=== PATIENT | female | born 1995 | race Caucasian/White ===

== ENCOUNTER 2017-09-04 16:42 | Emergency (ER) | payer BC, OTHER ==
[2017-09-04 17:35] LABS: #Lymphocytes 2.6 thou/uL (1.20-3.40); #Monocytes 0.7 thou/uL (0.11-0.59); #Neutrophils 6.9 thou/uL (1.40-6.50); %Basophils 0.4 % (0.0-1.0); %Eosinophils 0.4 % (0.0-10.0); %Lymphocytes 25.6 % (21.0-51.0); %Monocytes 6.8 % (0.0-10.0); Hematocrit 39.2 % (36.0-47.0); Mean Platelet Volume 7.3 fL (7.4-10.4); Red Blood Cell (RBC) Count 4.63 mill/uL (4.20-5.40); White Blood Cell (WBC) Count 10.3 thou/uL (4.8-10.8)
[2017-09-04 17:49] LABS: ALT (SGPT) 22 U/L (8-55); AST (SGOT) 19 U/L (5-34); Alkaline Phosphatase 85 U/L (40-150); Anion Gap 14 mmol/L (10-20); BUN (Urea Nitrogen) 13 mg/dL (7.0-18.7); Bilirubin, Total 0.3 mg/dL (0.2-1.2); Calc. Creatinine Clearance 0 mL/min (70-130); Calcium 9.7 mg/dL (7.8-10.44); Carbon Dioxide 25 mmol/L (22-29); Chloride 105 mmol/L (98-107); Estimated GFR-MDRD Greater than 90; Globulin 3.4 g/dL (2.4-3.5); Lipase 16 U/L (8-78); Protein, Total 7.7 g/dL (6.0-8.3)
[2017-09-04 18:16] LABS: Bilirubin Negative (Negative); Blood, Urine Negative (Negative); Glucose, Urine (Dipstick) Negative (Negative); Ketone, Urine Negative (Negative); Nitrite Negative (Negative); Protein, Urine (Dipstick) Negative (Neg-Trace); Urobilinogen 0.2 mg/dL (0.2-1.0)
--- NOTE | 2017-09-04 20:18 | CT ---
EXAM: ABDOMEN CT WITH CONTRAST PELVIC CT WITH CONTRAST 09/04/17 HISTORY: Abdominal pain, onset two days. Right lower quadrant pain. Nausea and vomiting and fever. COMPARISON: None. TECHNIQUE: Abdomen and pelvic CT performed with IV contrast . Enteric contrast was also administered. Coronal r eformatted images are submitted for interpretation. FINDINGS: ABDOMEN CT: Lung bases are clear. Normal heart size. The descending thoracic aorta and abdominal aorta have norm al caliber. No periaortic fat stranding. Symmetric attenuation of the psoas muscles. Gallbladder is surgically absent. Intra and extrahepatic portal vein is patent. Liver, spleen, pancreas and adrenal glands have symmetric enhancement. No gastrohepatic, retrocrural or periportal lymphadenopathy. No mesenteric mass, lymphadenopathy, free air or free fluid. Symmetric enhancement of the kidneys. Bilaterally, No obstructive uropathy. Gastric mucosa and duodenum are unremarkable. Multiple normal caliber small bowel loops are noted. I leocecal junction is normal. Contrast opacified normal appearing colon. There is some fecal material . No evidence of colonic obstruction. Appendix is not appreciated. Nevertheless, no significant inflammation of the cecal apex. Minimal fa t stranding at the tip of the cecal apex is noted which is nonspecific. Mucosa at this level is unre markable. PELVIC CT: Intrauterine device is identified. The uterus and left adnexa are unremarkable. There is appropriate enhancing essentially hypodense lesion in the right ovary measuring 1.3 x 1.7 cm. There is slight a symmetric enhancement of the right adnexal structures. The possibility of a complex cyst is raised. No pelvic mass, lymphadenopathy, free air or free fluid. Urinary bladder is unremarkable. There are no lytic or blastic changes of the osseous structures. IMPRESSION: 1. Nonvisualization of the appendix. Nevertheless, no significant inflammatory change at the ce tonya apex. Minimal adjacent fat stranding is nonspecific. 2. No evidence of bowel obstruction. 3. Hypodense lesion with peripheral enhancement in the right adnexa likely representing a right ovarian cyst. Followup ultrasound in 8 to 10 weeks is recommended to ensure resolution. POS: [facility]
[2017-09-04] MEDS ORDERED: Ketorolac Tromethamine 30 MG/ML VIAL ONE (20:19)
== END 2017-09-04 20:37 | disposition home or self-care (01) ==
LOC: SCSER 16:42
DX: N83.201 Unspecified ovarian cyst, right side (principal); F41.9 Anxiety disorder, unspecified; F32.9 Major depressive disorder, single episode, unspecified
CPT/HCPCS: 36415; 74177; 80053; 81003; 83690; 84702; 85025; 96374; J1885

== ENCOUNTER 2019-01-08 23:41 | Emergency (ER) | payer BC ==
[2019-01-09 00:30] LABS: #Basophils 0.1 thou/uL (0.0-0.2); #Eosinphils 0.1 thou/uL (0.0-0.7); #Lymphocytes 3.3 thou/uL (1.20-3.40); #Monocytes 0.6 thou/uL (0.11-0.59); #Neutrophils 5.5 thou/uL (1.40-6.50); %Basophils 0.7 % (0.0-1.0); %Lymphocytes 34.5 % (21.0-51.0); %Monocytes 6.3 % (0.0-10.0); %Neutrophils 57.5 % (42.0-75.0); Hemoglobin 11.9 g/dL (12.0-16.0); Mean Corpuscular HGB CONC 32.1 g/dL (32.0-36.0); Mean Corpuscular Hemoglobin 26.3 pg (27.0-31.0); Mean Corpuscular Volume 82.1 fL (78.0-98.0); Mean Platelet Volume 7.2 fL (7.4-10.4); Platelet Count 440 thou/uL (130-400); RBC Distribution Width 15.5 % (11.5-14.5); Red Blood Cell (RBC) Count 4.53 mill/uL (4.20-5.40); White Blood Cell (WBC) Count 9.6 thou/uL (4.8-10.8)
--- NOTE | 2019-01-09 12:00 | ULT ---
PRELIMINARY REPORT/[facility]/EMERGENCY AFTER HOURS PROCEDURE: EXAM: US , Transvaginal EXAM DATE/TIME: 01/09/2019 12:59 AM CLINICAL HISTORY: 23 years old, female; Signs and symptoms; Lmp or gestational age (in weeks): About 7wks per PT; Other : Vag bleeding; TECHNIQUE: Real-time transvaginal obstetrical ultrasound of the maternal pelvis and a first trimester with image documentation. Transvaginal imaging was used for better evaluation of the fetus and adnexa . COMPARISON: No relevant prior studies available. FINDINGS: GESTATION: Gestation: No intrauterine or ectopic identified. MATERNAL: Uterus: Uterus is anteverted, measuring 5.4 x 2.3 x 3.1 cm. Endometrium is homogeneous in echotexture and measures 2 mm in thickness the uterine fundus. Right adnexa: Right ovary measures 2.5 x 1.3 x 1.5 cm. Normal right ovarian vascular flow. Left adnexa: Left ovary measures 2.6 x 1.6 x 1.9 cm. Normal left ovarian vascular flow. IMPRESSION: 1. No sonographic evidence of acute pelvic abnormality. 2. No visible intrauterine or ectopic . Recommend continued beta hCG measurements and follow up ultrasound as indicated. Thank you for allowing us to participate in the care of your patient. Dictated and Authenticated by: Michael Khan MD 01/09/2019 1:58 AM Central Time ([place] & [place]) FINAL REPORT EMERGENCY AFTER HOURS PELVIC ULTRASOUND INCLUDING TRANSVAGINAL AND VASCULAR DUPLEX WITH COLOR AND SPE CTRAL DOPPLER IMAGING: Date: 01/09/19 FINDINGS/IMPRESSION: Uterus and right and left ovaries are normal in size, shape, and position. No abnormal fluid collecti on. No evidence for intrauterine or extrauterine . Follow-up serum HCGs. Report in agreement with preliminary report given on-call by Siddharth. POS: [facility]
== END 2019-01-09 02:45 | disposition home or self-care (01) ==
LOC: ERS 23:41
DX: O03.9 Complete or unspecified spontaneous abortion without complication (principal); F41.9 Anxiety disorder, unspecified; F32.9 Major depressive disorder, single episode, unspecified
CPT/HCPCS: 36415; 76856; 84702; 85025; 86900; 86901

== ENCOUNTER 2019-12-06 22:04 | Inpatient (IN) | payer BC ==
[~2019-12-06 22:04] MED LIST: Bupivacaine/Epinephrine 0.25% 30 ML VIAL ONE; Lidocaine 2% MPF 10 ML AMP (For Epidural Use) ONE; Succinylcholine Chloride 20 MG/ML 10 ml SYRINGE FS ONE
[2019-12-06] MEDS ORDERED: Butorphanol Tartrate 1 MG/ML VIAL SLOW IVP PRN (22:24)
[2019-12-06] MEDS ORDERED: Ibuprofen 800 MG TAB PO PRN (22:24)
[2019-12-06] MEDS ORDERED: hydrALAZINE 20 MG/ML VIAL SLOW IVP PRN (22:24)
[2019-12-06] MEDS ORDERED: Promethazine HCl 25 MG/ML VIAL IM PRN (22:24)
[2019-12-06] MEDS ORDERED: HYDROcodone/Acetaminophen 5/325 mg Tablet PO PRN ×2 (22:24)
[2019-12-06] MEDS ORDERED: Misoprostol 200 MCG TAB PR PRN (22:24)
[2019-12-06] MEDS ORDERED: Diphenoxylate HCl/Atropine Tablet PO PRN ×2 (22:24)
[2019-12-06] MEDS ORDERED: Ondansetron PF 4 MG/2 ML Vial IVP PRN (22:24)
[2019-12-06] MEDS ORDERED: Acetaminophen 500 MG TAB PO PRN (22:24)
[2019-12-06] MEDS ORDERED: NS / Oxytocin 40 units/1000ml 1,000 ML IV PRN (22:24)
[2019-12-06] MEDS ORDERED: Docusate 100 MG CAP PO PRN (22:24)
[2019-12-06] MEDS ORDERED: Lidocaine 1% (PF) 30 ML VIAL SC PRN (22:24)
[2019-12-06] MEDS ORDERED: NS w/ Oxytocin 10 units 500 ML IV SCH (22:24)
[2019-12-06 22:46] VITALS: BMI 46.8
[2019-12-06] MEDS: Lactated Ringer's 1,000 ML IV SCH (23:00)
[2019-12-06 23:27] LABS: Hemoglobin 10.9 g/dL (12.0-16.0); Mean Corpuscular HGB CONC 32.1 g/dL (32.0-36.0); Mean Corpuscular Hemoglobin 24.8 pg (27.0-31.0); Mean Corpuscular Volume 77.2 fL (78.0-98.0); Platelet Count 304 thou/uL (130-400); RBC Distribution Width 17.4 % (11.5-14.5); Red Blood Cell (RBC) Count 4.38 mill/uL (4.20-5.40); White Blood Cell (WBC) Count 12.7 thou/uL (4.8-10.8)
[2019-12-06] MEDS: Clindamycin/D5W 900 MG in Premix Bag 1 BAG IVPB SCH (23:40)
[2019-12-07 00:09] LABS: Hep B Surf Ag Non-Reactive S/CO (NonReactive); Syphilis Antibody Nonreactive (Nonreactive); Syphilis Antibody Index 0.04 S/CO (<1.00 Non-Reactive)
[2019-12-07] MEDS ORDERED: Fentanyl 4 mcg/Bup 0.1% Cadd 100 ML ONE ×3 (01:15→18:09)
[2019-12-07] MEDS ORDERED: diphenhydrAMINE 50 MG/ML VIAL IVP PRN ×2 (02:11→21:09)
[2019-12-07] MEDS ORDERED: Naloxone HCl 0.4 mg/ml Vial IVP PRN ×2 (02:11)
[2019-12-07] MEDS ORDERED: Ondansetron PF 4 MG/2 ML Vial IVP PRN ×2 (02:11→21:15)
[2019-12-07] MEDS ORDERED: ePHEDrine/0.9% NaCl/PF SYRINGE 50 mg/10 ml SLOW IVP PRN (02:11)
[2019-12-07] MEDS ORDERED: Promethazine HCl 25 MG/ML VIAL IM PRN ×2 (02:11→21:09)
[2019-12-07] MEDS ORDERED: Acetaminophen 325 MG TAB PO PRN ×2 (02:11→21:15)
[2019-12-07] MEDS ORDERED: Lactated Ringer's 500 ML IV PRN (02:11)
[2019-12-07] MEDS ORDERED: Communication Order-Pharmacy FS SCH ×2 (02:15→21:15)
[2019-12-07] MEDS: Lactated Ringer's 1,000 ML IV SCH ×2 (03:41→10:42)
[2019-12-07] MEDS: NS w/ Oxytocin 10 units 500 ML IV SCH (03:42)
[2019-12-07] MEDS: Clindamycin/D5W 900 MG in Premix Bag 1 BAG IVPB SCH ×2 (06:12→15:11)
[2019-12-07] MEDS: Fentanyl 4 mcg/Bupivacaine 0.1% Cassette 100 ML EPIDURAL SCH ×2 (10:24→18:14)
[2019-12-07] MEDS ORDERED: MORPHINE 5 MG/10 ML PF VIAL ONE (19:57)
[2019-12-07] MEDS ORDERED: Oxytocin 10 UNITS/ML VIAL ONE ×3 (19:57→20:44)
[2019-12-07] MEDS ORDERED: Lidocaine 2% 10 ML INJ ONE (19:58)
[2019-12-07] MEDS ORDERED: Midazolam HCl 2 mg/2 ml Vial ONE (20:13)
[2019-12-07] MEDS ORDERED: Succinylcholine Chloride 20 MG/ML 10 ml SYRINGE FS ONE (20:24)
[2019-12-07] MEDS ORDERED: PROPOFOL 200 MG/20 ML VIAL ONE (20:24)
[2019-12-07] MEDS ORDERED: Methylergonovine 0.2 MG/ML VIAL ONE ×2 (20:29→20:44)
[2019-12-07] MEDS ORDERED: Fentanyl 100 MCG/2 ML VIAL ONE (20:34)
[2019-12-07] MEDS ORDERED: Misoprostol 200 MCG TAB ONE ×2 (20:45→20:46)
[2019-12-07] MEDS ORDERED: PHENYLEPHRINE-NS 100 MCG/ML 10 ML SYRINGE ONE (20:51)
[2019-12-07] MEDS ORDERED: Ondansetron HCl/PF 4 MG/2 ML Vial IVP PRN (21:08)
[2019-12-07] MEDS ORDERED: Meperidine HCl/PF 25 MG/ML VIAL SLOW IVP PRN (21:08)
[2019-12-07] MEDS ORDERED: L&D-Morphine 4 MG/ML VIAL SLOW IVP PRN (21:08)
[2019-12-07] MEDS ORDERED: HYDROmorphone 2 MG/ML VIAL SLOW IVP PRN (21:08)
[2019-12-07] MEDS ORDERED: diphenhydrAMINE 25 MG CAP PO PRN ×2 (21:09→21:15)
[2019-12-07] MEDS ORDERED: fentaNYL Citrate/PF 2,000 MCG in Sodium Chloride 0.9% 60 ML IV PRN (21:09)
[2019-12-07] MEDS ORDERED: Zolpidem Tartrate 5 MG TAB PO PRN ×2 (21:09→21:15)
[2019-12-07] MEDS ORDERED: diphenhydrAMINE 50 MG/ML VIAL IM PRN (21:09)
[2019-12-07] MEDS ORDERED: Naloxone HCl 0.4 mg/ml Vial IV PRN (21:09)
[2019-12-07] MEDS ORDERED: Bisacodyl 10 MG SUPP PR PRN (21:15)
[2019-12-07] MEDS ORDERED: Adacel (T-DAP) 0.5 ML SYRINGE IM ONE (21:15)
[2019-12-07] MEDS ORDERED: Misoprostol 200 MCG TAB PR PRN (21:15)
[2019-12-07] MEDS ORDERED: Ketorolac Tromethamine 30 MG/ML VIAL IVP SCH (21:15)
[2019-12-07] MEDS ORDERED: NS / Oxytocin 40 units/1000ml 1,000 ML IV SCH (21:15)
[2019-12-07] MEDS ORDERED: hydrALAZINE 20 MG/ML VIAL SLOW IVP PRN (21:15)
[2019-12-07] MEDS ORDERED: Meperidine HCl/PF 25 MG/ML VIAL IM PRN (21:15)
[2019-12-07] MEDS ORDERED: Lanolin Ointment 7 GM TUBE TOP PRN (21:15)
[2019-12-08] MEDS: Ibuprofen 800 MG TAB PO SCH ×4 (02:15→23:35)
[2019-12-08 07:47] LABS: Hemoglobin 8.6 g/dL (12.0-16.0); Mean Corpuscular HGB CONC 32.2 g/dL (32.0-36.0); Mean Corpuscular Hemoglobin 24.8 pg (27.0-31.0); Mean Corpuscular Volume 76.9 fL (78.0-98.0); Mean Platelet Volume 9.3 fL (7.4-10.4); Platelet Count 240 thou/uL (130-400); RBC Distribution Width 17.2 % (11.5-14.5); Red Blood Cell (RBC) Count 3.48 mill/uL (4.20-5.40); White Blood Cell (WBC) Count 15.5 thou/uL (4.8-10.8)
[2019-12-08] MEDS: Ondansetron PF 4 MG/2 ML Vial IVP PRN ×2 (09:51→18:19)
[2019-12-08] MEDS: Prenatal Vitamin 1 TAB PO SCH (12:44)
[2019-12-08] MEDS: Ferrous Sulfate 325 MG TAB PO SCH ×2 (12:44→18:01)
[2019-12-08] MEDS: Docusate Calcium (SURFAK) 240 MG CAP PO SCH ×2 (12:44→20:50)
[2019-12-08] MEDS: HYDROcodone/Acetaminophen 5/325 mg Tablet PO PRN ×3 (14:04→22:10)
[2019-12-08] MEDS ORDERED: Sodium Chloride 0.9% 10 ML ONE (18:16)
[2019-12-08] MEDS: Simethicone Chewable 80 MG TAB PO PRN (20:51)
[2019-12-09] MEDS: HYDROcodone/Acetaminophen 5/325 mg Tablet PO PRN ×4 (02:17→18:04)
[2019-12-09] MEDS: Ibuprofen 800 MG TAB PO SCH ×3 (05:24→21:23)
[2019-12-09] MEDS: Docusate Calcium (SURFAK) 240 MG CAP PO SCH ×2 (08:19→21:23)
[2019-12-09] MEDS: Prenatal Vitamin 1 TAB PO SCH (08:19)
[2019-12-09] MEDS: Ferrous Sulfate 325 MG TAB PO SCH ×2 (08:19→17:59)
[2019-12-10] MEDS: Ibuprofen 800 MG TAB PO SCH ×3 (05:05→21:44)
[2019-12-10] MEDS: HYDROcodone/Acetaminophen 5/325 mg Tablet PO PRN ×3 (05:05→19:46)
[2019-12-10] MEDS: Lactated Ringer's 1,000 ML IV SCH (08:11)
[2019-12-10] MEDS: Clindamycin/D5W 900 MG in Premix Bag 1 BAG IVPB SCH (08:11)
[2019-12-10] MEDS: NS w/ Oxytocin 10 units 500 ML IV SCH (08:12)
[2019-12-10] MEDS: Ferrous Sulfate 325 MG TAB PO SCH ×2 (08:31→17:09)
[2019-12-10] MEDS: Prenatal Vitamin 1 TAB PO SCH (08:32)
[2019-12-10] MEDS: Docusate Calcium (SURFAK) 240 MG CAP PO SCH ×2 (08:32→21:44)
[2019-12-10] MEDS: Simethicone Chewable 80 MG TAB PO PRN (21:44)
[2019-12-11] MEDS: HYDROcodone/Acetaminophen 5/325 mg Tablet PO PRN ×3 (00:18→12:24)
[2019-12-11] MEDS: Simethicone Chewable 80 MG TAB PO PRN (04:23)
[2019-12-11] MEDS: Ibuprofen 800 MG TAB PO SCH (05:12)
[2019-12-11] MEDS: Prenatal Vitamin 1 TAB PO SCH (08:28)
[2019-12-11] MEDS: Ferrous Sulfate 325 MG TAB PO SCH (08:28)
[2019-12-11] MEDS: Docusate Calcium (SURFAK) 240 MG CAP PO SCH (08:28)
[2019-12-11 08:43] VITALS: BP 129/74; TEMP 97.5
--- NOTE | 2019-12-12 11:50 | OP ---
DATE OF PROCEDURE: 12/07/2019 WEATHERIZATION COORDINATOR SURGEON: Emily Pedroza MD PREOPERATIVE DIAGNOSES: 1. Term intrauterine at 40 weeks. 2. Failed induction. 3. Arrest of descent and dilatation. 4. Transverse arrest of descent. 5. Non-reassuring heart rate tracing. POSTOPERATIVE DIAGNOSES: 1. Term intrauterine at 40 weeks. 2. Failed induction. 3. Arrest of descent and dilatation. 4. Transverse arrest of descent. 5. Non-reassuring heart rate tracing. 6. Cephalopelvic disproportion (CPD). 7. Uterine anomaly. PROCEDURE PERFORMED: Primary low-transverse section. ANESTHESIA: 1. Epidural catheterization. 2. General endotracheal anesthesia. FINDINGS: 1. Arrest of descent and dilatation at 5 cm dilation, 90% effacement, and 0 station. 2. Significant caput and molding. 3. Extremely thin uterine wall. 4. Vigorous female infant, 6 pounds 9 ounces with Apgars 8 and 9. 5. Normal fallopian tubes and ovaries. 6. Superficial laceration of scalp at the time of low-transverse incision and entry into amniotic sac. BLOOD LOSS: Approximately 500 mL. HISTORY AND INDICATIONS: Ms Sherry Washington is a very sweet patient from my clinic for obstetric care. The patient presented to Labor and Delivery on the evening of 12/06/2019 complaining of decreased movements. She had a reactive NST and because she was scheduled for induction the next morning, a decision was made to keep the patient and start Pitocin. Her Pitocin induction was initiated after reactive tracing on the evening of 12/06/2019. Early on the morning of 12/07/2019, AROM was performed and internal monitors were placed. At that time, the patient was 2 cm dilated, 70% effaced, and -3 station. Aggressive Pitocin induction progressed throughout the day on 12/07/2019. Throughout her laboring process, we had a very difficult time obtaining an adequate contraction pattern despite multiple attempts at adjusting Pitocin dosages. The patient did subsequently progressed to 4 to 5 cm dilated, 90% effacement, and 0 station. At no time, was there any appreciable descent of the presenting vertex. Later that evening, the heart rate tracing was nonreassuring and the Pitocin was discontinued. The patient and her were counseled at length regarding the findings. After consent and counseling, decision was made to proceed with primary low-transverse section. Surgical disclosures were signed and questions were answered to the patient and family satisfaction. DESCRIPTION OF PROCEDURE: After thorough consent and counseling, Ms. Washington was taken to the operating room and an adequate level of anesthesia was attempted via epidural catheterization. The patient felt our test prior to incision. A decision was made to proceed with general anesthesia by the Anesthesia Team. The patient was previously prepped and draped in usual sterile fashion for abdominal surgery. A Barnett had previously been placed in the bladder, which was noted to be draining clear urine. A team time-out was performed prior to induction of anesthesia. heart rate tones were obtained in the OR. Neonatology was notified. An adequate level of anesthesia was obtained via general endotracheal anesthesia (GETA). A Pfannenstiel incision was made and carried sharply to the fascia, which was also sharply incised. The midline was identified and the rectus muscles were retracted laterally. The abdominal peritoneal cavity was entered with usual safeguard carried out. A bladder flap was created on the vesicouterine peritoneum and a bladder blade was placed. A low-transverse incision was made on the very well-developed lower uterine segment. Brisk bleeding was encountered. Once entering the amniotic sac, a small amount of amniotic fluid was appreciated , which was noted to be clear. The head was delivered and baby was bulb suctioned on the abdomen. Shoulders and body were then delivered in an atraumatic fashion. The cord was doubly clamped and cut. The infant was handed to the Neonatology Team in attendance for the delivery. Dr. Marianne Barajas was the customer service and sales consultant present for the delivery. The was a vigorous viable female weighing 6 pounds 9 ounces with Apgars of 8 and 9 obtained at 1 and 5 minutes respectively. Cord blood was obtained. Cord gases were set aside and placed on hold. The placenta was then manually removed from the uterus. The uterine cavity was then cleared of clot and fluid. The myometrium was noted to be extremely thin. When uterine cavity was cleared, we could see through the myometrium and the gloved hand could be visualized. The lower uterine segment was also noted to be extremely thin. This was suggestive of an extremely small uterus with atrophic uterine tissue. The low-transverse incision was closed with a running locking ligature of #1 chromic. A second imbricating layer was placed to facilitate strength and hemostasis. Several [id number] ligatures of 0 Vicryl were also placed to strength and integrity of the incision because of the thin myometrial lining. The vesicouterine peritoneum was reapproximated to the lower segment with a running ligature of 2-0 Monocryl suture. Posterior cul-de-sac gutters were cleared of clot and fluid. Careful inspection of the pelvis was performed. The patient was noted to have an extremely prominent sacrum with short anterior-posterior diameter. The sacrum was palpable with essentially no space between the posterior aspect of the uterus in the sacral promontory. The patient was also noted to have a very narrow outlet during examination during labor. For these reasons, a diagnosis of cephalopelvic disproportion was given. The fallopian tubes and ovaries were noted to be normal. Seprafilm was applied to the low-transverse incision and to the anterior aspect of the uterus for adhesion prevention. The uterus was returned to the abdomen. Good tone and hemostasis were once again appreciated. Lap, sponge, and needle counts were correct. The peritoneum was closed with a running ligature of 2-0 Vicryl. The rectus muscles were reapproximated in the midline with interrupted ligatures of 2-0 Vicryl. The fascia was then closed with 2 ligatures of 0 Vicryl suture, which were tied in the midline. Good fascial integrity was appreciated. The incision was irrigated with copious amount of warm normal saline. The subcutaneous tissue was closed with interrupted ligatures of 2-0 plain. Good subcutaneous closure was noted. The skin was closed with a subcuticular stitch of 4-0 Monocryl and dressed with Dermabond. Lap, sponge, and needle counts were correct x3. Estimated blood loss during the surgical procedure was less than 500 mL. The patient was awakened, extubated, and taken to postanesthesia in good condition. Immediately following surgery, the patient and family were made aware of the surgical procedure and operative findings. Of note, Dr. Barajas made me aware that there was a very small superficial laceration on the baby's scalp, which did not require sutures. This occurred at the time of the entry when brisk bleeding in the extremely thin myometrium was noted. The patient and her were made aware of the incident. Dr. Barajas also talked to the family. The patient and her were very appreciative of the care rendered here at [facility] this evening. Job ID: [id number]
== END 2019-12-11 12:40 | disposition home or self-care (01) | DRG 787 ==
LOC: L&D 22:04 → 3SW 12-08 01:05 → EDSTATUS 12-09 14:41
PROVIDERS: ADMIT Obstetrics & Gynecology; ATTEND Obstetrics & Gynecology
PROC: 10D00Z1 Extraction of Products of Conception, Low, Open Approach (ICD-10-PCS; principal; 2019-12-07)
DX: O24.420 Gestational diabetes mellitus in childbirth, diet controlled (principal); O98.52 Other viral diseases complicating childbirth; D62 Acute posthemorrhagic anemia; B00.9 Herpesviral infection, unspecified; O99.284 Endocrine, nutritional and metabolic diseases complicating childbirth; E03.9 Hypothyroidism, unspecified; O99.344 Other mental disorders complicating childbirth; F32.9 Major depressive disorder, single episode, unspecified; Z3A.39 39 weeks gestation of pregnancy; Z37.0 Single live birth; F41.9 Anxiety disorder, unspecified; O66.40 Failed trial of labor, unspecified; O76 Abnormality in fetal heart rate and rhythm complicating labor and delivery; O99.02 Anemia complicating childbirth; O34.03 Maternal care for unspecified congenital malformation of uterus, third trimester; Q51.9 Congenital malformation of uterus and cervix, unspecified
CPT/HCPCS: 36415; 51702; 85027; 86780; 86850; 86900; 86901; 87340; J0690; J2001; J2210; J2250; J2274; J2405; J2590; J2704; J3010; J3490